=== PATIENT | female | born 1990 | race Caucasian/White ===

== ENCOUNTER → 2017-03-26 12:15 | Outpatient (CLI) | payer MEDICAID | END | disposition home or self-care (01) | LOC: D.LDO 12:15 | DX: O36.8130 Decreased fetal movements, third trimester, not applicable or unspecified (principal); Z3A.33 33 weeks gestation of pregnancy ==

== ENCOUNTER → 2017-03-30 18:00 | Outpatient (CLI) | payer MEDICAID | END | disposition home or self-care (01) | LOC: D.LDO 18:00 | DX: O36.8130 Decreased fetal movements, third trimester, not applicable or unspecified (principal); Z3A.34 34 weeks gestation of pregnancy ==

== ENCOUNTER → 2017-04-02 18:33 | Outpatient (CLI) | payer MEDICAID | END | disposition home or self-care (01) | LOC: D.LDO 18:33 | DX: O36.8130 Decreased fetal movements, third trimester, not applicable or unspecified (principal); Z3A.34 34 weeks gestation of pregnancy ==

== ENCOUNTER → 2017-04-04 01:05 | Outpatient (CLI) | payer MEDICAID ==
[2017-04-04 02:05] LABS: APPEARANCE CLEAR (CLEAR); COLOR YELLOW (YELLOW); LEUKOCYTE ESTERASE NEGATIVE (NEGATIVE); NITRITE NEGATIVE (NEGATIVE); PROTEIN NEGATIVE (NEGATIVE)
[2017-04-04 02:06] LABS: BILIRUBIN NEGATIVE (NEGATIVE); GLUCOSE NEGATIVE (NEGATIVE); KETONE SMALL mg/dL (NEGATIVE); UROBILINOGEN NORMAL (NORMAL)
== END | disposition home or self-care (01) ==
LOC: D.LDO 01:05
PROVIDERS: Obstetrics & Gynecology
DX: Z34.83 Encounter for supervision of other normal pregnancy, third trimester (principal); Z3A.34 34 weeks gestation of pregnancy

== ENCOUNTER 2017-04-10 23:07 | Outpatient (CLI) | payer MEDICAID ==
[2017-04-10 23:26] LABS: APPEARANCE CLEAR (CLEAR); BILIRUBIN NEGATIVE (NEGATIVE); COLOR YELLOW (YELLOW); GLUCOSE NEGATIVE (NEGATIVE); KETONE NEGATIVE (NEGATIVE); LEUKOCYTE ESTERASE NEGATIVE (NEGATIVE); NITRITE NEGATIVE (NEGATIVE); PROTEIN NEGATIVE (NEGATIVE); SPECIFIC GRAVITY 1.015 (1.005-1.020); UROBILINOGEN NORMAL (NORMAL)
== END 2017-04-11 00:01 | disposition home or self-care (01) ==
LOC: D.LDO 23:07 → D.LD 23:55 → D.LDO 04-11 00:01
PROVIDERS: Obstetrics & Gynecology
DX: O26.899 Other specified pregnancy related conditions, unspecified trimester (principal); M54.9 Dorsalgia, unspecified

== ENCOUNTER → 2017-04-17 12:25 | Outpatient (CLI) | payer MEDICAID | END | disposition home or self-care (01) | LOC: D.LDO 12:25 | DX: O36.8130 Decreased fetal movements, third trimester, not applicable or unspecified (principal); Z3A.36 36 weeks gestation of pregnancy ==

== ENCOUNTER → 2017-04-24 10:59 | Outpatient (CLI) | payer MEDICAID | END | disposition home or self-care (01) | LOC: D.LDO 10:59 | DX: Z34.93 Encounter for supervision of normal pregnancy, unspecified, third trimester (principal); Z3A.37 37 weeks gestation of pregnancy ==

== ENCOUNTER → 2017-05-01 12:31 | Outpatient (CLI) | payer MEDICAID | END | disposition home or self-care (01) | LOC: D.LDO 12:31 | DX: Z34.93 Encounter for supervision of normal pregnancy, unspecified, third trimester (principal); Z3A.38 38 weeks gestation of pregnancy ==

== ENCOUNTER → 2017-05-05 09:50 | Outpatient (CLI) | payer MEDICAID ==
[~2017-05-05 09:50] MED LIST: PHENERGAN25 M1 PO; ZOFRAN4 MG PO
[2017-05-06 05:56] VITALS: BMI 25.3
== END | disposition home or self-care (01) ==
LOC: D.LDO 09:50
DX: O36.8130 Decreased fetal movements, third trimester, not applicable or unspecified (principal); Z3A.39 39 weeks gestation of pregnancy

== ENCOUNTER 2017-05-06 05:34 | Inpatient (IN) | payer MEDICAID ==
[~2017-05-06] VITALS: Ht 149.9 cm; Wt 56.7 kg
[2017-05-06 05:56] VITALS: BP 90/56; Ht 149.9 cm; Wt 56.7 kg
[2017-05-06 06:30] LABS: HEMATOCRIT 33.5 % (36.0-48.0); HEMOGLOBIN 11.2 g/dL (12-16); MCH 28.6 pg (26.0-34.0); MCHC 33.4 g/dL (31.0-37.0); MCV 85.5 fL (80.0-100.0); MEAN PLATELET VOLUME 9.9 fL (7.4-10.4); RBC 3.92 10x6/uL (4.00-5.40); RDW 13.3 % (11.5-14.5); WBC 14.3 10x3/uL (4.8-10.8)
[2017-05-06 07:14] LABS: APPEARANCE HAZY (CLEAR); BILIRUBIN NEGATIVE (NEGATIVE); COLOR YELLOW (YELLOW); GLUCOSE NEGATIVE (NEGATIVE); KETONE NEGATIVE (NEGATIVE); LEUKOCYTE ESTERASE 1+ (NEGATIVE); NITRITE NEGATIVE (NEGATIVE); PROTEIN NEGATIVE (NEGATIVE); SPECIFIC GRAVITY 1.015 (1.005-1.020)
[2017-05-06 07:15] LABS: BACTERIA MODERATE /hpf (NONE SEEN); MUCUS <1+ /lpf (NONE SEEN); RED CELLS - URINE 0-5 /hpf (0-5); WHITE CELLS - URINE 0-5 /hpf (0-5)
[2017-05-06 19:32] VITALS: BP 99/54
--- NOTE | 2017-05-06 19:32 | NUR ---
RCVD PT FROM AM SHIFT. PT LYING ON BACK, HOB 45 DEGREES. VISITORS IN ROOM WELL 2 YOUNG CHILDREN. PT RATES CURRENT PAIN 5/10 IN PERINEUM AND ABD DESCRIBED CRAMPING AND BURNING. VSS, HR-RRR, PPP, NO EDEMA NOTED TO BLE. PIV SL IN RT FOREARM WITH NO ERYTHEMA OR EDEMA TO SITE. FUNDUS FIRMED WITH MASSAGE AND DEVIATED TO THE RIGHT. BLADDER DISTENDED. EDU PT ON VOIDING WHEN SHE FEELS URGE TO VOID. PT VERBALIZED UNDERSTANDING. UP TO VOID AT THIS TIME WITH MINIMAL ASSISTANCE FROM THIS RN. CLEAN PANTIES, PADS, AND GOWN PROVIDED. PT VOIDS LARGE AMOUNT IN TOILET WITH 1 DIME SIZE CLOT NOTED. MOD. LOCHIA RUBRA NOTED ON SOILED PERIPAD UPON CHANGING. PERICARE WITH BETADINE AND WATER TEACHING PROVIDED WITH RETURN DEMONSTRATION PER PT. DERMAPLAST AND TUCKS USED PER PT AT THIS TIME. PT BACK TO BED PER SELF. FAMILY REMAINS IN ROOM AT BEDSIDE. PT DENIES FURTHER NEEDS AT THIS TIME. BED LOW, WHEELS LOCKED, CL IN REACH, SIDE RAILS UP X2.
--- NOTE | 2017-05-06 19:49 | NUR ---
MOTRIN 600MG X1 TAB GIVEN FOR PAIN RATED 5/[address] GROVER IN ROOM DISCUSSING CARE WITH PT AND FAMILY. PT DENIES FURTHER NEEDS AT THIS TIME.
--- NOTE | 2017-05-06 20:33 | NUR ---
PT REPORTS PAIN 2/10 CURRENTLY AND STATES IT'S TOLERABLE. INFANT UP IN ARMS, FOB AT BEDSIDE. PT INQUIRES ABOUT FEEDING SCHEDULE. INFORMED PT THAT IS TO BE FED FORMULA EVERY 3 HOURS. PT VERBALIZED UNDERSTANDING. GIFT BOX PROVIDED AT THIS TIME. PT DENIES FURTHER NEEDS.
--- NOTE | 2017-05-06 21:54 | NUR ---
ROUNDS MADE. PT SITTING IN BED FILLING OUT NBN PAPERWORK. FOB AT BEDSIDE FEEDING INFANT AT THIS TIME. PT AND FOB INQUIRE ABOUT HOW MUCH TO FEED INFANT. ADV TO FEED 10-15 AND BURP BEFORE OFFERING MORE. AND NOT TO FEED FOR MORE THAN 30 MINUTES IT TIRES THE OUT. PT AND FOB VERBALIZED UNDERSTANDING AND DENY FURTHER NEEDS.
[2017-05-06] MEDS ORDERED: PHENERGAN25 M1 PO (22:21)
[2017-05-06] MEDS ORDERED: ZOFRAN4 MG PO (22:21)
--- NOTE | 2017-05-06 22:26 | NUR ---
NORCO 5/325 MG X1 TAB GIVEN FOR PAIN RATED 4/10 IN PERINEUM AT THIS TIME. INFANT IN OPEN CRIB AT BEDSIDE. PT DENIES FURTHER NEEDS AT THIS TIME. WILL CONT TO MONITOR.
--- NOTE | 2017-05-06 22:55 | NUR ---
ROUNDS MADE PT SITTING UP IN BED CHANGING INFANT'S DIAPER. FOB AT BEDSIDE. NBN REQUESTS TO NURSERY TO ASSESS FEEDING. PT VERBALIZES UNDERSTANDING. SWADDLED PER THIS RN AND TRANSPORTED TO NBN VIA OPEN CRIB.
--- NOTE | 2017-05-07 00:21 | NUR ---
FOB TO NURSE DESK REQUESTING BLANKETS AND PILLOW. SAME PROVIDED. FOB REPORTS PT SLEEPING AT THIS TIME. NO FURTHER NEEDS VOICED.
--- NOTE | 2017-05-07 01:55 | NUR ---
PT RINGS CL. THIS RN TO BEDSIDE. PT REQUESTS & RECEIVES CUP OF ICE. DENIES PAIN OR FURTHER NEEDS AT THIS TIME.
--- NOTE | 2017-05-07 03:56 | NUR ---
ROUNDS MADE. PT LYING ON RT SIDE, HOB 20 DEGREES. PT RESTING, EYES CLOSED, RESP EVEN & UNLABORED. PT LEFT UNDISTURBED AT THIS TIME.
[2017-05-07 05:13] LABS: BASOPHILS 0.1 % (0-2); EOSINOPHILS 0.9 % (0-7); HEMATOCRIT 29.4 % (36.0-48.0); HEMOGLOBIN 9.7 g/dL (12-16); IMMATURE GRANULOCYTES 0.7 % (0-5); LYMPHOCYTES 33.3 % (15-50); MCH 28.6 pg (26.0-34.0); MCV 86.7 fL (80.0-100.0); MEAN PLATELET VOLUME 9.5 fL (7.4-10.4); MONOCYTES 6.3 % (2-11); NEUTROPHILS 58.7 % (40-80); PLATELET COUNT 313 10x3/uL (130-400); RBC 3.39 10x6/uL (4.00-5.40); RDW 13.3 % (11.5-14.5); WBC 14.7 10x3/uL (4.8-10.8)
--- NOTE | 2017-05-07 05:37 | NUR ---
ROUNDS MADE. PT RESTING ON LT SIDE. EYES CLOSED, RESP EVEN & UNLABORED. PT LEFT UNDISTURBED AT THIS TIME.
--- NOTE | 2017-05-07 07:15 | NUR ---
SHIFT ASSESSMENT COMPLETED, VSS, SEE FLOWSHEET FOR DOC. PT RATING PAIN 7/10 IN ABD, CRAMPING. WILL ADMIN PRN PAIN MEDS ORDERED. FF, ML, U/2. SMALL RUBRA LOCHIA WITHOUT CLOTS. PT DENIES CONCERNS WITH HEAVY BLEEDING, INSTRUCTED ON WHAT TO REPORT CONCERNING HEAVY LOCHIA AND CLOTS. UNDERSTANDING VERBALIZED. HYGIENE, PAIN CONTROL, AND DISCHARGE PLANNING DISCUSSED WITH PT AND FOB. UNDERSTANDING VERBALIZED, QUESTIONS DENIED. WILL ADMIN PAIN MEDS AND CONT TO MONITOR.
[2017-05-07 07:26] LABS: RAPID PLASMA REAGIN Non Reactive (Non Reactive)
[2017-05-07 07:30] VITALS: BP 99/66
--- NOTE | 2017-05-07 09:16 | NUR ---
THIS RN TO ROOM FOR PAIN REASSESMENT. PT DENIES PAIN OR ANY NEEDS AT THIS TIME. FEEDING AT THIS TIME. SRUx2, CL IN REACH. WILL CONT TO MONITOR.
--- NOTE | 2017-05-07 11:45 | NUR ---
THIS RN TO ROOM FOR PT CHECK. PT DENIES PAIN, STATES DERMAPLAST IS HELPING WITH PERIPAIN. PT PROVIDED WITH SPRITE REQUESTED, DENIES FURTHER NEEDS. SRUx2, CL IN REACH.
--- NOTE | 2017-05-07 14:07 | NUR ---
DISCUSSED ORDER FOR D/C TO HOME WITH PT. PT AGREES SHE IS READY TO GO HOME AND HAS A LOT OF FAMILY SUPPORT AT HOME. PT DENIES PAIN OR ANY NEEDS AT THIS TIME. WILL CONT TO MONITOR.
--- NOTE | 2017-05-07 14:45 | NUR ---
THIS RN TO ROOM TO GIVE DISCHARGE INSTRUCTIONS. PT RESTING IN BED ON RIGHT SIDE, EYES CLOSED, RESP EVEN AND UNLABORED. PT LEFT UNDISTURBED.
[2017-05-07 15:20] VITALS: BP 93/52
--- NOTE | 2017-05-07 15:30 | NUR ---
PT GIVEN DISCHARGE INSTRUCTIONS WELL WRITTEN PRESCRIPTIONS FOR PAIN CONTROL POST D/C TO HOME. PT VERBALIZES UNDERSTANDING, QUESTIONS ANSWERED. PT SIGNS CHART COPIES OF INSTRUCTIONS. PT INSTRUCTED TO CALL THIS RN WHEN READY FOR D/C TO HOME FOR W/C OUT TO PRIVATE VEHICLE.
--- NOTE | 2017-05-07 16:30 | NUR ---
PT C/O PAIN RATED 5/10 AND REQUESTING PAIN MEDICATION PRIOR TO D/C TO HOME BECAUSE IT WILL BE "A WHILE" BEFORE SHE CAN GET PAIN RX FILLED. DR TAYLOR NOTIFIED, MAY GIVE PAIN MEDS NOW REQUESTED.
--- NOTE | 2017-05-07 17:08 | NUR ---
PT TRANSFERRED TO PRIVATE VEHICLE VIA W/C FOR D/C TO HOME. INSTRUCTIONS IN HAND. PT'S MOTHER TO MULTIPLE LAUNCH ROCK[employer] CREWMEMBER HER HOME.
== END 2017-05-07 17:08 | disposition home or self-care (01) | DRG 775 ==
LOC: D.LD 05:34
PROVIDERS: ADMIT Obstetrics & Gynecology
PROC: 10907ZC Drainage of Amniotic Fluid, Therapeutic from Products of Conception, Via Natural or Artificial Opening (ICD-10-PCS; principal; 2017-05-06)
PROC: 3E033VJ Introduction of Other Hormone into Peripheral Vein, Percutaneous Approach (ICD-10-PCS; principal; 2017-05-06)
PROC: 0KQM0ZZ Repair Perineum Muscle, Open Approach (ICD-10-PCS; principal; 2017-05-06)
PROC: 10E0XZZ Delivery of Products of Conception, External Approach (ICD-10-PCS; principal; 2017-05-06)
DX: O77.0 Labor and delivery complicated by meconium in amniotic fluid (principal); O70.1 Second degree perineal laceration during delivery; O99.334 Smoking (tobacco) complicating childbirth; O75.89 Other specified complications of labor and delivery; G40.909 Epilepsy, unspecified, not intractable, without status epilepticus; Z37.0 Single live birth; Z3A.39 39 weeks gestation of pregnancy

== ENCOUNTER 2018-10-13 13:37 | Emergency (ER) | payer MEDICAID ==
[~2018-10-13] VITALS: Ht 149.9 cm; Wt 52.3 kg
[2018-10-13 13:41] VITALS: BP 102/55; Ht 149.9 cm; Wt 52.3 kg
[2018-10-13] MEDS ORDERED: TYLENOL W/CODEI1 TAB PO (15:10)
== END 2018-10-13 15:32 | disposition home or self-care (01) ==
LOC: D.ER 13:37
DX: O26.892 Other specified pregnancy related conditions, second trimester (principal); Z3A.19 19 weeks gestation of pregnancy; G40.909 Epilepsy, unspecified, not intractable, without status epilepticus; F17.200 Nicotine dependence, unspecified, uncomplicated; S99.922A Unspecified injury of left foot, initial encounter; W18.30XA Fall on same level, unspecified, initial encounter; Y93.89 Activity, other specified; Y92.019 Unspecified place in single-family (private) house as the place of occurrence of the external cause

== ENCOUNTER 2018-11-15 01:19 | Outpatient (CLI) | payer MEDICAID ==
[2018-10-13 13:41] VITALS: BMI 23.2
[~2018-11-15 01:19] MED LIST changes: +TYLENOL W/CODEI1 TAB PO
== END 2018-11-15 01:40 | disposition home or self-care (01) ==
LOC: D.LDO 01:19
DX: O36.8120 Decreased fetal movements, second trimester, not applicable or unspecified (principal); Z3A.24 24 weeks gestation of pregnancy